=== PATIENT | male | born 1960 | race Caucasian/White ===

== ENCOUNTER 2016-11-30 15:59 | Emergency (ER) | payer OTHER ==
[~2016-11-30] VITALS: Wt 94.3 kg
[2016-11-30] MEDS ORDERED: KLONOPIN0.5 MG PO (16:02)
[2016-11-30] MEDS ORDERED: DEPAKOTE125 MG PO (16:02)
[2016-11-30] MEDS ORDERED: METOPROLOL SUCC50 M1 PO (16:03)
[2016-11-30] MEDS ORDERED: OMEPRAZOLE10 MG PO (16:03)
[2016-11-30] MEDS ORDERED: ZOLOFT20 MG/ML PO (16:03)
[2016-11-30] MEDS ORDERED: BAYER ASPIRIN C81 MG PO (16:03)
[2016-11-30] MEDS ORDERED: HYDROCODONE BIT1 T11 PO (17:50)
[2016-11-30] MEDS ORDERED: MEDROL DOSEPAK4 MG PO (17:51)
== END 2016-11-30 17:56 | disposition home or self-care (01) ==
LOC: ED 15:59
DX: M54.5 Low back pain (principal); M25.552 Pain in left hip; F17.200 Nicotine dependence, unspecified, uncomplicated; Z88.7 Allergy status to serum and vaccine; Z91.041 Radiographic dye allergy status; V89.2XXA Person injured in unspecified motor-vehicle accident, traffic, initial encounter; Y93.89 Activity, other specified; Y92.9 Unspecified place or not applicable; Y99.9 Unspecified external cause status

== ENCOUNTER 2018-06-28 13:06 | Emergency (ER) | payer OTHER ==
[~2018-06-28] VITALS: Ht 175.2 cm; Wt 106.6 kg
[~2018-06-28 13:06] MED LIST: BAYER ASPIRIN C81 MG PO; DEPAKOTE125 MG PO; HYDROCODONE BIT1 T11 PO; KLONOPIN0.5 MG PO; MEDROL DOSEPAK4 MG PO; METOPROLOL SUCC50 M1 PO; OMEPRAZOLE10 MG PO; ZOLOFT100 MG PO
[2018-06-28] MEDS ORDERED: AUGMENTIN 875875 MG PO (13:49)
[2018-06-28] MEDS ORDERED: PROAIR HFA8.5 GM INH (13:49)
[2018-06-28] MEDS ORDERED: PREDNISONE50 MG PO (13:49)
== END 2018-06-28 14:06 | disposition home or self-care (01) ==
LOC: ED 13:06
DX: J20.9 Acute bronchitis, unspecified (principal); Z91.041 Radiographic dye allergy status; Z88.7 Allergy status to serum and vaccine; Z79.899 Other long term (current) drug therapy; Z79.82 Long term (current) use of aspirin

== ENCOUNTER 2018-09-11 20:44 | Inpatient (IN) | payer OTHER ==
[~2018-09-11] VITALS: Ht 172.7 cm; Wt 107.1 kg
--- NOTE | ~2018-09-11 | EKG ---
[place], [place] ELECTROCARDIOGRAM REPORT NAME: CHEPE BLANC UNIT #: [id number] ROOM: 405 DOCTOR: KHARI DRAFT REPORT BIRTHDATE: [address] [facility] Test Date: 2018-09-11 Test Time: 23:39:42 Pat Name: CHEPE BLANC Department: Room: 405 Gender: M Printing Table Hand: Enoc Zamora : 1960 Requested By: ALYSSA HEARN Order Number: [id number] Reading MD: William Multani MD Measurements Intervals [place] Rate: 73 P: 71 SD: 148 QRS: 49 QRSD: 80 T: 52 QT: 373 QTc: 411 Interpretive Statements Sinus rhythm Baseline wander in lead(s) V3 Electronically Signed On 09-12-2018 14:48:19 PDT by William Multani MD CM:EKGRPT:ELECTROCARDIOGRAM REPORT [id number] ALYSSA FAYE DRAFT REPORT ALYSSA HEARN DO
--- NOTE | ~2018-09-11 | EKG ---
[place], [place] ELECTROCARDIOGRAM REPORT NAME: CHEPE BLANC UNIT #: [id number] ROOM: 405 DOCTOR: KHARI DRAFT REPORT BIRTHDATE: [birth year] [facility] [place] [facility] Test Date: 2018-09-12 Test Time: 02:56:15 Pat Name: CHEPE BLANC Department: Room: 405 Gender: M Stretcher Drier Operator: Vicki Beverly : 1960 Requested By: ALYSSA HEARN Order Number: [id number] Reading MD: William Multani MD Measurements Intervals [place] Rate: 65 P: 67 MO: 157 QRS: 62 QRSD: 84 T: 74 QT: 525 QTc: 546 Interpretive Statements Sinus rhythm Low voltage, extremity and precordial leads Nonspecific T abnormalities, lateral leads Prolonged QT interval Baseline wander in lead(s) I,II,aVR,aVL,aVF,V1,V2,V3,V4,V5,V6 No previous ECG available for comparison Electronically Signed On 09-12-2018 14:48:33 PDT by William Multani MD CM:EKGRPT:ELECTROCARDIOGRAM REPORT [id number] ALYSSA FAYE DRAFT REPORT ALYSSA HEARN DO
--- NOTE | ~2018-09-11 | EKG ---
[place], [place] ELECTROCARDIOGRAM REPORT NAME: CHEPE BLANC UNIT #: [id number] ROOM: 405 DOCTOR: KHARI DRAFT REPORT BIRTHDATE: [birth year] [facility] Test Date: 2018-09-11 Test Time: 20:49:04 Pat Name: CHEPE BLANC Department: Room: 405 Gender: M Hvac R Instructor: Enoc Zamora : 1960 Requested By: ALYSSA HEARN Order Number: [id number] Reading MD: William Multani MD Measurements Intervals [place] Rate: 78 P: 61 [place]: 144 QRS: 54 QRSD: 91 T: 61 QT: 361 QTc: 412 Interpretive Statements Sinus rhythm Low voltage, extremity and precordial leads Baseline wander in lead(s) I,II,III,aVR,aVL,aVF,V1 Electronically Signed On 09-12-2018 14:47:56 PDT by William Multani MD CM:EKGRPT:ELECTROCARDIOGRAM REPORT [id number] ALYSSA FAYE DRAFT REPORT ALYSSA HEARN DO
[~2018-09-11 20:44] MED LIST changes: +AUGMENTIN 875875 MG PO; +PREDNISONE50 MG PO; +PROAIR HFA8.5 GM INH
[2018-09-11 20:51] VITALS: BP 133/83
[2018-09-11 21:04] LABS: BASO # 0.1 10*3/uL (0.0-0.1); BASO % 0.8 % (0.0-1.0); EOS # 0.2 10*3/uL (0.0-0.4); HEMATOCRIT 49.9 % (42.0-52.0); LYMPH # 2.2 10*3/uL (1.3-4.4); LYMPH % 29.4 % (27.0-41.0); MEAN CELL VOLUME 83.6 fl (80.0-94.0); MEAN CORPUSCULAR HGB 28.5 pg (27.0-31.0); MEAN CORPUSCULAR HGB CONC 34.1 g/dl (33.0-37.0); MONO # 0.6 10*3/uL (0.1-1.0); MONO % 7.8 % (3.0-9.0); NEUT # 4.4 10*3/uL (2.3-7.9); NEUT % 59.7 % (47.0-73.0); PLATELET COUNT AUTOMATED 168 10*3/uL (130-400); RED BLOOD COUNT 5.97 10*6/uL (4.50-5.90); WHITE BLOOD COUNT 7.4 10*3/uL (4.8-10.8)
[2018-09-11 21:16] LABS: ACT PARTIAL THROMBO TIME 24.8 SECONDS (20.0-32.1); INTERNATIONAL NORM RATIO 0.9 (2.0-3.5)
--- NOTE | 2018-09-11 21:28 | NUR ---
LAB CALLED NAVNEET 2.3 Yaneth MORALES NOTIFIED
[2018-09-11 21:34] LABS: ALBUMIN 3.4 gm/dl (3.1-4.5); ALKALINE PHOSPHATASE 97 U/L (45-117); BUN 10 mg/dl (7-24); CHLORIDE 103 mmol/L (98-107); POTASSIUM 4.5 mmol/L (3.5-5.1); SGOT/AST 26 IU/L (3-35); SGPT/ALT 30 U/L (12-78); SODIUM 140 mmol/L (136-145); TOTAL PROTEIN 7.5 gm/dL (6.4-8.2)
[2018-09-11 21:35] LABS: TROPONIN I < 0.015 ng/ml (<0.045)
[2018-09-11 21:58] VITALS: BP 122/72
[2018-09-11 22:27] VITALS: BP 137/79
--- NOTE | 2018-09-11 22:27 | NUR ---
Time: 2226 A 58 year old MALE admitted to under services of ASIF FINCH DO. Pt. arrived via bed from ER. Chief complaint: SOB, WEAKNESS, DIZZINESS, HEADACHE. REPORT RECIEVED FROM ER NURSE. PT VOICES NO COMPLAINTS AT THIS TIME. BELONGINGS ACCOUNTED FOR. INITIAL ASSESSMENT COMPLETED - SEE ADMISSION ASSESSMENT. AERONAUTICAL RESEARCH ENGINEER APPLIED TO PT, HE IS NSR AT THIS TIME WITH A HEART RATE IN THE 70'S. WENDI COVARRUBIAS
[2018-09-11] MEDS ORDERED: DEPAKOTE ER500 MG PO (22:37)
--- NOTE | 2018-09-11 22:38 | NUR ---
IV FLUID STILL INFUSING WHEN TAKEN TO FLOOR
--- NOTE | 2018-09-11 23:22 | NUR ---
DR. GAINES NOTIFIED MED REC IS UP TO DATE
[2018-09-12] VITALS (9 sets, daily range): BP systolic 84–136; BP diastolic 53–82
--- NOTE | 2018-09-12 01:17 | NUR ---
ONE TIME ORDER FOR TORADOL ADMINISTERED FOR COMPLAINTS OF A HEADACHE. PT STATES "IT FEELS LIKE SOMEONE IS SQUEEZING MY HEAD REALLY HARD". WILL MONITOR FOR EFFECTIVENESS OF MED.
--- NOTE | 2018-09-12 02:30 | NUR ---
TORADOL EFFECTIVE. PT SLEEPING WITH NO S/S OF PAIN OR DISCOMFORT. WILL CONTINUE TO MONITOR/
[2018-09-12 06:43] LABS: BUN 12 mg/dl (7-24); CHLORIDE 107 mmol/L (98-107); CHOLESTEROL 228 mg/dL (<200); CREATININE 0.96 mg/dL (0.70-1.30); HDL CHOLESTEROL 28 mg/dl (40-60); LDL CHOLESTEROL 123 mg/dL (9-159); PHOSPHOROUS 4.2 mg/dL (2.5-4.9); POTASSIUM 4.7 mmol/L (3.5-5.1); SODIUM 140 mmol/L (136-145); TRIGLYCERIDES 386 mg/dl (<150); VLDL CHOLESTEROL 77 mg/dL (6-40)
[2018-09-12 06:49] LABS: BASO # 0.1 10*3/uL (0.0-0.1); BASO % 0.9 % (0.0-1.0); EOS # 0.2 10*3/uL (0.0-0.4); LYMPH # 2.8 10*3/uL (1.3-4.4); LYMPH % 40.9 % (27.0-41.0); MEAN CELL VOLUME 84.4 fl (80.0-94.0); MEAN CORPUSCULAR HGB 27.6 pg (27.0-31.0); MEAN CORPUSCULAR HGB CONC 32.7 g/dl (33.0-37.0); MEAN PLATELET VOLUME 9.2 fl (9.6-12.3); MONO # 0.6 10*3/uL (0.1-1.0); MONO % 9.1 % (3.0-9.0); NEUT # 3.1 10*3/uL (2.3-7.9); NEUT % 45.8 % (47.0-73.0); PLATELET COUNT AUTOMATED 141 10*3/uL (130-400); RED BLOOD COUNT 5.33 10*6/uL (4.50-5.90); RED CELL DISTRI WIDTH 13.2 % (0-14.5); WHITE BLOOD COUNT 6.7 10*3/uL (4.8-10.8)
[2018-09-12 06:51] LABS: HEMOGLOBIN 14.7 g/dl (14.0-18.0)
[2018-09-12 07:00] LABS: VALPROIC ACID (DEPAKENE) 70.9 ug/ml (50-100)
--- NOTE | 2018-09-12 07:30 | NUR ---
PATIENT RESTING QUIETLY IN BED. NO DISTRESS NOTED. PULSE OX 97% VIA 2LNC. PT DENIES ANY SOB AT REST. LUNGS DIMINISHED WITH EXPIRATORY WHEEZE. SMOKER PER PT. DENIES ANY PAIN/DISCOMFORT AT THIS TIME. WILL CONTINUE TO MONITOR. VSS. CALL LIGHT WITHIN REACH.
[2018-09-12 07:36] LABS: VITAMIN D, 25-HYDROXY 52.2 ng/mL (30-100)
--- NOTE | 2018-09-12 09:00 | NUR ---
Director Clinical Information Services in to talk to patient. Patient states lives at home with alone. There are few steps in the home. Physician: none at present [facility]acy[facility] health services: none Patient's level of ADLs: INDEPENDENT Patient has working utilities: all working DME: rollator walker, standard walker, cane, bedside commode, Follow-up physician's appointment after d/c: will be made by hospitalist nurse director upon discharge Does patient want to access PORTAL?: no Discharge plan discussed with patient, patient states he lives at home alone, he has help from his girlfriend if needed, patient patient he has all of the equipment at home he could possible need, he uses a walker for ambulation, drives, patient states he will be going home when able, discussed with him VNA and he declines any services at this time, case management will follow for any home needs. REA GROVER
--- NOTE | 2018-09-12 09:22 | NUR ---
IN TO SEE PATIENT.
--- NOTE | 2018-09-12 11:50 | NUR ---
PT SLEEPING. NO DISTRESS. WILL CONTINUE TO MONITOR. CALL LIGHT WITHIN REACH.
--- NOTE | 2018-09-12 17:17 | NUR ---
NOTIFIED REGARDING PT C/O DIZZINESS. ORTHO'S PERFORMED. ORTHO'S NEGATIVE. WILL RECHECK BP IN 1 HOUR. AT BEDSIDE.
--- NOTE | 2018-09-12 18:51 | NUR ---
NOTIFIED REGARDING MOST RECENT BP. ALSO AWARE OF PATIENT C/O DIZZINESS WITH MOVEMENT. WILL BE IN TO SEE THE PATIENT.
--- NOTE | 2018-09-12 20:30 | NUR ---
DR. OLMSTEAD NOTIFIED OF LOW BP. NEW ORDERS RECIEVED. WILL CONTINUE TO MONITOR PT.
--- NOTE | 2018-09-12 23:00 | NUR ---
ASSUMED CARE FOR THIS PT AT THIS TIME. CONTINUES TO C/O DIZZINESS W/CHANGE OF PLANE AND TURNING IN BED AND AYOUB. NO OTHER C/O VOICED. PT ENCOURAGED TO CALL FOR ASSISTANCE WHEN NEEDED. CALL LIGHT IN REACH.
[2018-09-13] VITALS: BP 110/68
[2018-09-13 06:37] VITALS: BP 126/77
[2018-09-13 06:48] LABS: BASO # 0.1 10*3/uL (0.0-0.1); BASO % 1.2 % (0.0-1.0); EOS # 0.1 10*3/uL (0.0-0.4); EOS % 2.4 % (1.0-4.0); HEMATOCRIT 43.6 % (42.0-52.0); HEMOGLOBIN 14.2 g/dl (14.0-18.0); LYMPH # 2.1 10*3/uL (1.3-4.4); LYMPH % 34.6 % (27.0-41.0); MEAN CELL VOLUME 85.5 fl (80.0-94.0); MEAN CORPUSCULAR HGB 27.8 pg (27.0-31.0); MEAN CORPUSCULAR HGB CONC 32.6 g/dl (33.0-37.0); MEAN PLATELET VOLUME 9.6 fl (9.6-12.3); MONO # 0.5 10*3/uL (0.1-1.0); MONO % 8.2 % (3.0-9.0); NEUT # 3.2 10*3/uL (2.3-7.9); NEUT % 53.4 % (47.0-73.0); PLATELET COUNT AUTOMATED 131 10*3/uL (130-400); RED CELL DISTRI WIDTH 12.9 % (0-14.5)
[2018-09-13 07:19] LABS: BUN 12 mg/dl (7-24); CHLORIDE 108 mmol/L (98-107); CREATININE 0.86 mg/dL (0.70-1.30); POTASSIUM 4.7 mmol/L (3.5-5.1); SODIUM 142 mmol/L (136-145)
--- NOTE | 2018-09-13 09:00 | NUR ---
case management visits with patient, patient states he will be going home when able and denies any home needs
--- NOTE | 2018-09-13 09:54 | NUR ---
INFORMED CONSENT SIGNED FOR LEXISCAN STRESS TEST WITH DR. CONDE. RESTING EKG NSR, HR 69, BP 106/72. PULSE OX 95% AND LUNG SOUNDS DECREASED BILATERALLY. COMPLETED ONE MINUTE OF LEXISCAN PROTOCOL RECEIVING LEXISCAN 0.4MG OVER 10 SECONDS[address] NO ARRHYTHMIAS OR ST CHANGES NOTED. PT DID C/O BEING "WOOZY AND WEAK IN THE LEGS." LAST RECOVERY HR 91, BP 118/76. WAITING NUCLEAR SCANNING IN STABLE CONDITION.
[2018-09-13 12:00] VITALS: BP 140/81
[2018-09-13 16:00] VITALS: BP 140/81
--- NOTE | 2018-09-13 19:00 | NUR ---
PT AWAKE IN BED DURING BEDSIDE SHIFT REPORT. PT C/O SORE CHEST, DENIES CP. PT DENIES NEED FOR PAIN MED AT THIS TIME. PT C/O DIZZINESS W/CHANGE OF PLANE AND TURNING FROM SIDE TO SIDE IN BED. CALL LIGHT IN REACH.
--- NOTE | 2018-09-13 23:15 | NUR ---
PT. REFUSED AT THIS TIME WILL CALL LATER.
[2018-09-14] VITALS: BP 134/83
--- NOTE | 2018-09-14 09:00 | NUR ---
case management visits with patient, patient states he will be going home when able and denies any home needs
[2018-09-14 12:00] VITALS: BP 101/53
[2018-09-14 16:00] VITALS: BP 112/64
--- NOTE | 2018-09-14 19:26 | NUR ---
PT AWAKE IN BED DURING BEDSIDE SHIFT REPORT. PT C/O LEFT FRONTAL H/A 11/09. PT STATES THAT TYLENOL WAS INEFFECTIVE. DR. DANIEL NOTIFIED.
--- NOTE | 2018-09-14 19:45 | NUR ---
PT MEDICATED W/TORADOL IVP AT THIS TIME FOR C/O H/A. PT RESTING QUIETLY IN BED W/LIGHTS OFF AND BLIND CLOSED. CALL LIGHT IN REACH.
[2018-09-14 20:00] VITALS: BP 98/58
--- NOTE | 2018-09-14 21:45 | NUR ---
PT STATES THAT HE STILL HAS A MILD H/A BUT TORADOL WAS EFFECTIVE. PT SITTING ON SIDE OF BED AT THIS TIME. CALL LIGHT IN REACH.
[2018-09-15] VITALS: BP 114/72
--- NOTE | 2018-09-15 02:00 | NUR ---
PT RESTING COMFORTABLY IN BED AT THIS TIME WITH NO SIGNS OR SYMPTOMS OF PAIN OR DISCOMFORT. RESPIRATIONS ARE EASY AND NONLABORED. BED IS LOCKED AND IN THE LOWEST POSITION, CALL LIGHT IS WITHIN REACH. WILL CONTINUE TO MONITOR PT.
[2018-09-15 08:00] VITALS: BP 126/88
--- NOTE | 2018-09-15 09:00 | NUR ---
case management visits with patient, patient states he will be going home when able and denies any home needs
[2018-09-15 12:00] VITALS: BP 135/92
--- NOTE | 2018-09-15 14:05 | NUR ---
Discharge instructions reviewed with patient/family. Patient receptive and verbalizes understanding. Follow-up care arranged. Written instructions given to patient/family. HEPLOCK AND PRODUCTION ENGINEER D/C'ED. PT AMBULATORY OFF FLOOR. CARLITO ROBERTSON
== END 2018-09-15 14:05 | disposition home or self-care (01) | DRG 312 ==
LOC: ED 20:44 → 4E 22:17 → EDHOLD 22:17 → 4E 22:22
PROVIDERS: Emergency Medicine; Internal Medicine; ADMIT Internal Medicine
PROC: 4A02XM4 Measurement of Cardiac Total Activity, External Approach (ICD-10-PCS; principal; 2018-09-13)
PROC: 3E073KZ Introduction of Other Diagnostic Substance into Coronary Artery, Percutaneous Approach (ICD-10-PCS; 2018-09-13)
DX: R55 Syncope and collapse (principal); E87.2 Acidosis; R73.9 Hyperglycemia, unspecified; Z91.041 Radiographic dye allergy status; F31.9 Bipolar disorder, unspecified; K21.9 Gastro-esophageal reflux disease without esophagitis; F17.210 Nicotine dependence, cigarettes, uncomplicated; Z80.0 Family history of malignant neoplasm of digestive organs; Z79.899 Other long term (current) drug therapy; Z71.6 Tobacco abuse counseling

== ENCOUNTER → 2021-04-18 | Outpatient (CLI) | payer OTHER ==
[~2021-04-18] MED LIST changes: +DEPAKOTE ER500 MG PO
== END | disposition home or self-care (01) ==
LOC: LAB 17:02
PROVIDERS: ATTEND Emergency Medicine
DX: J44.9 Chronic obstructive pulmonary disease, unspecified (principal)

== ENCOUNTER 2022-11-04 02:45 | Emergency (ER) | payer MEDICAID ==
[~2022-11-04] VITALS: Ht 170.1 cm; Wt 113.4 kg
[2022-11-04 03:08] LABS: BASO # 0.1 10*3/uL (0.0-0.1); EOS # 0.1 10*3/uL (0.0-0.4); EOS % 1.8 % (1.0-4.0); HEMATOCRIT 46.2 % (42.0-52.0); LYMPH # 2.2 10*3/uL (1.3-4.4); MEAN CELL VOLUME 84.5 fl (80.0-94.0); MEAN CORPUSCULAR HGB 27.6 pg (27.0-31.0); MEAN CORPUSCULAR HGB CONC 32.7 g/dl (33.0-37.0); MEAN PLATELET VOLUME 9.2 fl (9.6-12.3); MONO # 0.4 10*3/uL (0.1-1.0); MONO % 7.1 % (3.0-9.0); NEUT # 3.3 10*3/uL (2.3-7.9); NEUT % 53.9 % (47.0-73.0); PLATELET COUNT AUTOMATED 132 10*3/uL (130-400); RED BLOOD COUNT 5.47 10*6/uL (4.50-5.90); RED CELL DISTRI WIDTH 13.1 % (0-14.5)
[2022-11-04 03:17] LABS: INTERNATIONAL NORM RATIO 1.1 (2.0-3.5)
[2022-11-04 03:29] LABS: ALKALINE PHOSPHATASE 87 U/L (46-116); BUN 13 mg/dl (9-23); CHLORIDE 104 mmol/L (98-107); LIPASE 41 U/L (12-53); POTASSIUM 4.6 mmol/L (3.4-5.1); SGPT/ALT 15 U/L (10-49); TOTAL PROTEIN 6.5 gm/dL (6.0-8.0)
[2022-11-04] MEDS ORDERED: AMOX-CLAV 875-1 EACH PO (05:49)
== END 2022-11-04 05:55 | disposition home or self-care (01) ==
LOC: ED 02:45
PROVIDERS: Internal Medicine
DX: J69.0 Pneumonitis due to inhalation of food and vomit (principal); T17.998A Other foreign object in respiratory tract, part unspecified causing other injury, initial encounter; I10 Essential (primary) hypertension; F41.9 Anxiety disorder, unspecified; F32.A Depression, unspecified; Z91.041 Radiographic dye allergy status; Z88.8 Allergy status to other drugs, medicaments and biological substances; Z98.890 Other specified postprocedural states; F17.200 Nicotine dependence, unspecified, uncomplicated; W22.8XXA Striking against or struck by other objects, initial encounter; Y93.89 Activity, other specified; Y92.89 Other specified places as the place of occurrence of the external cause; Y99.8 Other external cause status

== ENCOUNTER 2022-11-22 18:51 | Inpatient (IN) | payer MEDICAID ==
[~2022-11-22] VITALS: Ht 172.7 cm; Wt 108.2 kg
[~2022-11-22 18:51] MED LIST changes: +AMOX-CLAV 875-1 EACH PO
[2022-11-22 19:07] VITALS: BP 120/83
[2022-11-22 19:53] LABS: BASO # 0.1 10*3/uL (0.0-0.1); BASO % 1.1 % (0.0-1.0); EOS # 0.2 10*3/uL (0.0-0.4); EOS % 2.6 % (1.0-4.0); HEMATOCRIT 45.5 % (42.0-52.0); LYMPH # 2.3 10*3/uL (1.3-4.4); LYMPH % 33.5 % (27.0-41.0); MEAN CELL VOLUME 84.7 fl (80.0-94.0); MEAN CORPUSCULAR HGB 28.1 pg (27.0-31.0); MEAN CORPUSCULAR HGB CONC 33.2 g/dl (33.0-37.0); MEAN PLATELET VOLUME 9.5 fl (9.6-12.3); MONO # 0.4 10*3/uL (0.1-1.0); MONO % 5.3 % (3.0-9.0); NEUT % 57.4 % (47.0-73.0); PLATELET COUNT AUTOMATED 145 10*3/uL (130-400); RED BLOOD COUNT 5.37 10*6/uL (4.50-5.90); RED CELL DISTRI WIDTH 13.2 % (0-14.5)
[2022-11-22 20:13] LABS: ALKALINE PHOSPHATASE 80 U/L (46-116); BUN 16 mg/dl (9-23); CHLORIDE 108 mmol/L (98-107); SGPT/ALT 10 U/L (10-49); TOTAL PROTEIN 6.6 gm/dL (6.0-8.0)
[2022-11-22 22:11] VITALS: BP 113/77
[2022-11-23 02:01] VITALS: BP 119/63
[2022-11-23 02:25] VITALS: BP 133/68
[2022-11-23 06:53] LABS: BASO # 0.1 10*3/uL (0.0-0.1); BASO % 1.5 % (0.0-1.0); EOS # 0.2 10*3/uL (0.0-0.4); EOS % 3.5 % (1.0-4.0); HEMATOCRIT 43.4 % (42.0-52.0); LYMPH # 2.8 10*3/uL (1.3-4.4); LYMPH % 46.6 % (27.0-41.0); MEAN CELL VOLUME 83.9 fl (80.0-94.0); MEAN CORPUSCULAR HGB 27.9 pg (27.0-31.0); MEAN CORPUSCULAR HGB CONC 33.2 g/dl (33.0-37.0); MEAN PLATELET VOLUME 9.8 fl (9.6-12.3); MONO # 0.3 10*3/uL (0.1-1.0); MONO % 5.7 % (3.0-9.0); NEUT # 2.5 10*3/uL (2.3-7.9); NEUT % 42.5 % (47.0-73.0); PLATELET COUNT AUTOMATED 117 10*3/uL (130-400); RED BLOOD COUNT 5.17 10*6/uL (4.50-5.90); WHITE BLOOD COUNT 5.9 10*3/uL (4.8-10.8)
[2022-11-23 07:08] LABS: ALKALINE PHOSPHATASE 89 U/L (46-116); BUN 15 mg/dl (9-23); CHLORIDE 106 mmol/L (98-107); CHOLESTEROL 212 mg/dL (<200); FREE T4 0.96 ng/dl (0.89-1.76); POTASSIUM 3.9 mmol/L (3.4-5.1); SGPT/ALT 9 U/L (10-49); TRIGLYCERIDES 485 mg/dl (<150)
[2022-11-23 07:33] LABS: VITAMIN D, 25-HYDROXY 40.6 ng/mL (30-100)
[2022-11-23 08:00] VITALS: BP 119/75
[2022-11-23] MEDS ORDERED: OMEPRAZOLE40 MG PO (09:13)
[2022-11-23] MEDS ORDERED: LIPITOR80 MG PO (11:12)
[2022-11-23] MEDS ORDERED: FEOSOL325 MG PO (11:12)
[2022-11-23] MEDS ORDERED: METOPROLOL SUCC50 M1 PO (11:13)
[2022-11-23 12:00] VITALS: BP 122/74
[2022-11-23 12:09] LABS: BILIRUBIN Negative (Negative); BLOOD Negative (Negative); CLARITY Clear (Clear); COLOR Yellow (Yellow); GLUCOSE Negative (Negative); KETONE Negative (Negative); LEUKO ESTERASE Negative (Negative); NITRITE Negative (Negative); PH 5.5 (4.5-8.0)
[2022-11-23 12:19] LABS: BACTERIA TRACE
[2022-11-23 12:20] LABS: MUCOUS 2+
[2022-11-23 16:00] VITALS: BP 146/85
[2022-11-23] MEDS ORDERED: BUPROPION75 MG PO (16:35)
[2022-11-23] MEDS ORDERED: SEROQUEL50 MG PO (16:38)
[2022-11-23] MEDS ORDERED: CELECOXIB200 M1 PO (16:39)
[2022-11-23] MEDS ORDERED: LYRICA200 M1 PO (16:40)
[2022-11-23 20:00] VITALS: BP 117/59
[2022-11-24] VITALS: BP 123/71
[2022-11-24 06:55] LABS: BASO % 0.5 % (0.0-1.0); EOS % 0.1 % (1.0-4.0); HEMATOCRIT 48.4 % (42.0-52.0); LYMPH # 1.3 10*3/uL (1.3-4.4); LYMPH % 16.2 % (27.0-41.0); MEAN CELL VOLUME 83.3 fl (80.0-94.0); MEAN CORPUSCULAR HGB 27.7 pg (27.0-31.0); MEAN CORPUSCULAR HGB CONC 33.3 g/dl (33.0-37.0); MEAN PLATELET VOLUME 9.7 fl (9.6-12.3); MONO # 0.2 10*3/uL (0.1-1.0); NEUT # 6.3 10*3/uL (2.3-7.9); NEUT % 79.9 % (47.0-73.0); PLATELET COUNT AUTOMATED 145 10*3/uL (130-400); RED BLOOD COUNT 5.81 10*6/uL (4.50-5.90); RED CELL DISTRI WIDTH 12.9 % (0-14.5); WHITE BLOOD COUNT 7.9 10*3/uL (4.8-10.8)
[2022-11-24 07:29] LABS: BUN 16 mg/dl (9-23); CHLORIDE 101 mmol/L (98-107); POTASSIUM 4.6 mmol/L (3.4-5.1)
[2022-11-24 08:00] VITALS: BP 122/70
[2022-11-24] MEDS ORDERED: FEOSOL325 MG PO (08:24)
[2022-11-24] MEDS ORDERED: TRICOR48 MG PO (08:24)
[2022-11-24] MEDS ORDERED: DOXYCYCLINE HY100 M3 PO (08:24)
[2022-11-24] MEDS ORDERED: PREDNISONE10 MG PO (08:24)
[2022-11-24 12:00] VITALS: BP 126/72
== END 2022-11-24 13:35 | disposition home or self-care (01) | DRG 140 ==
LOC: ED 18:51 → EDHOLD 11-23 00:20 → 4E 11-23 00:20
PROVIDERS: Emergency Medicine; Internal Medicine; Student in an Organized Health Care Education/Training Program; ADMIT Internal Medicine; ATTEND Internal Medicine
PROC: 5A09357 Assistance with Respiratory Ventilation, Less than 24 Consecutive Hours, Continuous Positive Airway Pressure (ICD-10-PCS; principal; 2022-11-23)
DX: J44.1 Chronic obstructive pulmonary disease with (acute) exacerbation (principal); F17.210 Nicotine dependence, cigarettes, uncomplicated; E87.8 Other disorders of electrolyte and fluid balance, not elsewhere classified; K21.9 Gastro-esophageal reflux disease without esophagitis; E11.65 Type 2 diabetes mellitus with hyperglycemia; F31.9 Bipolar disorder, unspecified; I12.9 Hypertensive chronic kidney disease with stage 1 through stage 4 chronic kidney disease, or unspecified chronic kidney disease; E78.2 Mixed hyperlipidemia; Z66 Do not resuscitate; Z90.49 Acquired absence of other specified parts of digestive tract; Z88.7 Allergy status to serum and vaccine; Z99.81 Dependence on supplemental oxygen; Z68.35 Body mass index [BMI] 35.0-35.9, adult; Z71.6 Tobacco abuse counseling; Z91.041 Radiographic dye allergy status; Z88.8 Allergy status to other drugs, medicaments and biological substances; Z80.0 Family history of malignant neoplasm of digestive organs; Z79.899 Other long term (current) drug therapy

== ENCOUNTER 2023-04-02 22:45 | Emergency (ER) | payer MEDICAID ==
[~2023-04-02] VITALS: Ht 172.7 cm; Wt 90.7 kg
[2023-04-02 23:07] LABS: BASO # 0.1 10*3/uL (0.0-0.1); EOS # 0.1 10*3/uL (0.0-0.4); EOS % 1.5 % (1.0-4.0); HEMATOCRIT 46.5 % (42.0-52.0); LYMPH # 2.1 10*3/uL (1.3-4.4); LYMPH % 34.9 % (27.0-41.0); MEAN CELL VOLUME 83.5 fl (80.0-94.0); MEAN CORPUSCULAR HGB 27.5 pg (27.0-31.0); MEAN CORPUSCULAR HGB CONC 32.9 g/dl (33.0-37.0); MEAN PLATELET VOLUME 9.5 fl (9.6-12.3); MONO # 0.4 10*3/uL (0.1-1.0); MONO % 6.3 % (3.0-9.0); NEUT # 3.4 10*3/uL (2.3-7.9); NEUT % 56.1 % (47.0-73.0); PLATELET COUNT AUTOMATED 103 10*3/uL (130-400); RED BLOOD COUNT 5.57 10*6/uL (4.50-5.90); RED CELL DISTRI WIDTH 12.5 % (0-14.5); WHITE BLOOD COUNT 6.1 10*3/uL (4.8-10.8)
[2023-04-02 23:28] LABS: ACT PARTIAL THROMBO TIME 29.1 SECONDS (20.0-32.1); ALKALINE PHOSPHATASE 63 U/L (46-116); BUN 16 mg/dl (9-23); CHLORIDE 108 mmol/L (98-107); ETHYL ALCOHOL 194.8 mg/dl (<3); LIPASE 38 U/L (12-53); POTASSIUM 4.3 mmol/L (3.4-5.1); SGPT/ALT 17 U/L (5-49); TOTAL PROTEIN 6.8 gm/dL (6.0-8.0)
== END 2023-04-03 01:37 | disposition home or self-care (01) ==
LOC: ED 22:45
PROVIDERS: Internal Medicine
DX: M54.2 Cervicalgia (principal); R07.89 Other chest pain; J44.9 Chronic obstructive pulmonary disease, unspecified; F17.210 Nicotine dependence, cigarettes, uncomplicated; Z91.041 Radiographic dye allergy status; Z88.7 Allergy status to serum and vaccine; Z79.899 Other long term (current) drug therapy; Z79.2 Long term (current) use of antibiotics; Z98.890 Other specified postprocedural states; Z90.49 Acquired absence of other specified parts of digestive tract; W18.39XA Other fall on same level, initial encounter; Y93.89 Activity, other specified; Y92.096 Garden or yard of other non-institutional residence as the place of occurrence of the external cause; Y99.8 Other external cause status

== ENCOUNTER → 2023-04-02 | Outpatient (CLI) | payer MEDICAID ==
[~2023-04-02] MED LIST changes: +BUPROPION75 MG PO; +CELECOXIB200 M1 PO; +DOXYCYCLINE HY100 M3 PO; +FEOSOL325 MG PO; +LIPITOR80 MG PO; +LYRICA200 M1 PO; +OMEPRAZOLE40 MG PO; +PREDNISONE10 MG PO; +SEROQUEL50 MG PO; +TRICOR48 MG PO
== END | disposition home or self-care (01) ==
LOC: RAD 17:01
PROVIDERS: ATTEND Emergency Medicine
DX: M54.9 Dorsalgia, unspecified (principal)

== ENCOUNTER → 2024-02-02 | Day surgery (SDC) | payer MEDICAID ==
[~2024-02-02] VITALS: Ht 172.7 cm; Wt 111.6 kg
[~2024-02-02] MED LIST changes: +Balanced Salt Solution 500 ML OPH SCH; +Cefuroxime Sodium 5 MG in BALANCED SALT IRRIG SOLN NO.2 0.5 ML,SYRINGE, DISPOSABLE, 10 ... IO SCH; +Midazolam Hydrochloride 2 MG/2 ML VIAL IV ONE; +OFLOXACIN 0.3% 5 ML BOTTLE ONE; +OFLOXACIN 0.3% 5 ML BOTTLE OPH SCH; +PHENYLEPHRINE/KETOROLAC 4 ML in Balanced Salt Solution 500 ML OPH SCH; +POVIDONE IODINE 5% OPHTHALMIC 30 ML BOTTLE OPH ONE; +POVIDONE IODINE 5% OPHTHALMIC 30 ML BOTTLE OPH SCH; +Phenylephrine Hydrochloride 2 ML BOT OPH ONE; +Phenylephrine Hydrochloride 2 ML BOT OPH SCH; +Proparacaine Hydrochloride 15 ML BOT OPH ONE; +Proparacaine Hydrochloride 15 ML BOT OPH SCH; +SODIUM CHLORIDE 0.9% 1,000 ML IV SCH; +TROPICAMIDE 3 ML BOT OPH ONE; +TROPICAMIDE 3 ML BOT OPH SCH; +Tetracaine Hydrochloride 0.5% 4 ML BOT OPH ONE; +Tetracaine Hydrochloride 0.5% 4 ML BOT OPH SCH; +prednisoLONE acetate 1% OPHTHALMIC 5 ML BOT OPH ONE; +prednisoLONE acetate 1% OPHTHALMIC 5 ML BOT OPH SCH
[2024-02-02 08:48] VITALS: BP 121/65
[2024-02-02 10:48] VITALS: BP 121/77
[2024-02-02 11:03] VITALS: BP 116/64
[2024-02-02 11:18] VITALS: BP 94/63
== END ==
LOC: SDC 01-28 11:45
PROVIDERS: ATTEND Ophthalmology
DX: H25.11 Age-related nuclear cataract, right eye (principal); I10 Essential (primary) hypertension; J44.1 Chronic obstructive pulmonary disease with (acute) exacerbation; E78.00 Pure hypercholesterolemia, unspecified; K21.9 Gastro-esophageal reflux disease without esophagitis; F17.210 Nicotine dependence, cigarettes, uncomplicated; F31.9 Bipolar disorder, unspecified; Z90.49 Acquired absence of other specified parts of digestive tract; Z96.641 Presence of right artificial hip joint; Z98.890 Other specified postprocedural states; Z88.7 Allergy status to serum and vaccine; Z91.041 Radiographic dye allergy status; Z79.82 Long term (current) use of aspirin; Z79.899 Other long term (current) drug therapy

== ENCOUNTER → 2024-03-08 | Day surgery (SDC) | payer MEDICAID ==
[~2024-03-08] VITALS: Ht 172.7 cm; Wt 111.6 kg
[~2024-03-08] MED LIST changes: +METFORMIN HYDR500 MG PO; +TETRACAINE HCL 10 DROP BOT OPH SCH
[2024-03-08 09:00] VITALS: BP 115/70
[2024-03-08 09:35] VITALS: BP 115/84
[2024-03-08 09:50] VITALS: BP 122/80
== END | disposition home or self-care (01) ==
LOC: SDC 03-03 10:15
PROVIDERS: ATTEND Ophthalmology
DX: H25.12 Age-related nuclear cataract, left eye (principal); I10 Essential (primary) hypertension; K21.9 Gastro-esophageal reflux disease without esophagitis; F41.9 Anxiety disorder, unspecified; F32.A Depression, unspecified; F17.210 Nicotine dependence, cigarettes, uncomplicated; Z88.7 Allergy status to serum and vaccine; Z88.8 Allergy status to other drugs, medicaments and biological substances; Z98.890 Other specified postprocedural states; Z79.82 Long term (current) use of aspirin; Z79.899 Other long term (current) drug therapy